=== PATIENT | female | born 1995 | race Caucasian/White ===

== ENCOUNTER 2019-07-08 16:18 | Inpatient (IN) | payer OTHER ==
[~2019-07-08] VITALS: Ht 178 cm; Wt 66.0 kg
--- NOTE | 2019-07-08 | NUR ---
PATIENT SLEEPING. NO SIGNS OF DISTRESS. RESPIRATIONS EASY, NON LABORED. EARLIER MEDICATIONS EFFECTIVE. BED IN LOWEST POSITION CALL LIGHT WITHIN REACH. WILL CONTINUE TO MONITOR.
--- NOTE | 2019-07-08 17:29 | NUR ---
PATIENT MEETS [facility]. CINA=[id number]. PATIENT WANTS MEDICATION-ASSISTED TREATMENT FOR HER AFTERCARE PLAN. [facility] STAFF WILL PROVIDE PATIENT WITH REFERRAL OPTIONS IN HER AREA. REMY MARCOS B.A. PRODUCT TESTER
--- NOTE | 2019-07-08 18:20 | NUR ---
24 year old FEMALE admitted to room # 502-2 for stabilization. Reports an addiction to 8 last used FENTANYL hours prior to admission. Compliant with admission procedure. See assessment forms for additional information about patient status.
[2019-07-08 18:45] VITALS: BP 117/62
--- NOTE | 2019-07-08 18:50 | NUR ---
DR WAHL CALLED AND NOTIFIED THAT PT IS IN THE ROOM AND NO HOME MEDS.
[2019-07-08 19:26] LABS: BILIRUBIN NEGATIVE (NEGATIVE); BLOOD NEGATIVE (NEGATIVE); CLARITY CLEAR (CLEAR); COLOR YELLOW (YELLOW); GLUCOSE NEGATIVE (NEGATIVE); KETONE NEGATIVE (NEGATIVE); LEUKO ESTERASE NEGATIVE (NEGATIVE); NITRITE NEGATIVE (NEGATIVE); PH 5.5 (5.0-9.0); SPECIFIC GRAVITY >= 1.030 (1.005-1.030); UROBILINOGEN 0.2 E.U./dl (0.2-1.0)
[2019-07-08 19:35] LABS: URINE AMPHETAMINES < 1000 (1000ng/ml); URINE BARBITURATES < 200 (200ng/ml); URINE BENZODIAZEPINES < 200 (200ng/ml); URINE CANNABINOIDS (THC) < 50 (50ng/ml); URINE COCAINE < 300 (300ng/ml); URINE METHADONE < 300 (300ng/ml); URINE OPIATES > 300 (300ng/ml)
[2019-07-08 19:37] LABS: URINE PHENCYCLIDINE < 25 (25ng/ml)
[2019-07-08 19:40] LABS: BACTERIA 2+; EPITHELIAL CELLS 15-20
[2019-07-08 19:41] LABS: MUCOUS 1+
[2019-07-08 19:55] LABS: BASO % 0.3 % (0.0-1.0); EOS # 0.1 10*3/uL (0.0-0.4); EOS % 1.1 % (1.0-4.0); HEMATOCRIT 40.5 % (37.0-47.0); LYMPH # 2.1 10*3/uL (1.3-4.4); LYMPH % 34.5 % (27.0-41.0); MEAN CELL VOLUME 88.6 fl (81.0-99.0); MEAN CORPUSCULAR HGB 28.4 pg (27.0-31.0); MEAN CORPUSCULAR HGB CONC 32.1 g/dl (33.0-37.0); MEAN PLATELET VOLUME 10.9 fl (9.6-12.3); MONO # 0.6 10*3/uL (0.1-1.0); MONO % 10.1 % (3.0-9.0); NEUT # 3.3 10*3/uL (2.3-7.9); NEUT % 53.7 % (47.0-73.0); PLATELET COUNT AUTOMATED 243 10*3/uL (130-400); RED BLOOD COUNT 4.57 10*6/uL (4.10-5.10); WHITE BLOOD COUNT 6.1 10*3/uL (4.8-10.8)
[2019-07-08 20:00] VITALS: BP 117/56
[2019-07-08 20:14] LABS: ALBUMIN 4.1 gm/dl (3.1-4.5); BUN 9 mg/dl (7-24); CHLORIDE 108 mmol/L (98-107); CREATININE 0.73 mg/dL (0.55-1.02); POTASSIUM 3.8 mmol/L (3.5-5.1); SGOT/AST 11 IU/L (3-35); SGPT/ALT 15 U/L (12-78); SODIUM 140 mmol/L (136-145); TOTAL PROTEIN 7.4 gm/dL (6.4-8.2)
[2019-07-08 20:15] LABS: ALKALINE PHOSPHATASE 101 U/L (45-117)
[2019-07-08 20:17] LABS: BETA-HCG, QUANT < 1.0 mIU/mL (1-3); ETHYL ALCOHOL < 3.0 mg/dl (<3)
--- NOTE | 2019-07-08 21:27 | NUR ---
PATIENT WANTING NICOTINE INHALER, NOTIFIED DR. BENDER. NICOTINE PATCH AND NICOTINE GUM D/C. NICOTINE INHALER ORDERED. WILL CONTINUE TO MONITOR.
--- NOTE | 2019-07-08 22:29 | NUR ---
PATIENT VERY ANXIOUS, CRYING. C/O OF NAUSEA, ABDOMINAL PAIN AND FEELING ANXIOUS. MEDICATED WITH ZOFRAN, BENTYL AND VISTARIL. NO OTHER COMPLAINTS VOICED AT THIS TIME. WILL CHECK EFFECTIVENESS.
[2019-07-09] VITALS: BP 125/67
[2019-07-09 04:00] VITALS: BP 130/72
--- NOTE | 2019-07-09 05:30 | NUR ---
PATIENT VOMITTED/SPIT UP BOTH SUBUTEX. NOTIFIED DR. BENDER. NO NEW ORDERS RECEIVED. TOLD TO JUST BRIANNA NOT GIVEN AND WILL RETRY WHEN NEXT DOSE IS DUE. NO WITHDRAW SYMPTOMS NOTED. WILL CONTINUE TO MONITOR
[2019-07-09 08:00] VITALS: BP 120/81
--- NOTE | 2019-07-09 13:12 | NUR ---
[facility] STAFF FOUND REFERRAL OPTIONS FOR PATIENT IN HER AREA FOR MEDICATION-ASSISTED TREATMENT USING SUBOXONE AND-OR THE VIVITROL SHOT. [facility] STAFF HAS MADE NUMEROUS ATTEMPTS, HOWEVER PATIENT REPORTS THAT SHE FEELS SICK AND WANTS STAFF TO FOLLOW BACK UP LATER. [facility] STAFF WILL FOLLOW UP LATER. REMY MARCOS B.A. GARDENER
--- NOTE | 2019-07-09 13:32 | NUR ---
PT PUT MINT INTO MOUTH PRIOR TO SL SUBUTEX, SOON SUBUTEX WAS PLACED UNDER THE TONGUE PT GAGGED, VOMITED/SPIT UP SUBUTEX. SUBUTEX WASTED. DR RIVERA NOTIFIED.
[2019-07-09 16:00] VITALS: BP 131/73
--- NOTE | 2019-07-09 17:00 | NUR ---
MEDICATED WITH REQUIP AND VISTARIL ORDERED FOR COMPLAINTS OF ANXIETY AND RESTLESS LEG
--- NOTE | 2019-07-09 17:45 | NUR ---
VOICES THAT PRN MED'S WERE EFFECTIVE
[2019-07-10] VITALS: BP 138/65
[2019-07-10 08:00] VITALS: BP 133/74
--- NOTE | 2019-07-10 09:47 | NUR ---
C/O NAUSEA, ANXIETY AND PAIN/CRAMPS IN LEGS. GIVEN ZOFRAN, VISTARIL, ROBAXIN, AND MOTRIN. WILL CONT TO MONITOR. CALL LIGHT IN REACH.
--- NOTE | 2019-07-10 10:47 | NUR ---
PRN'S EFF AT THIS TIME. WILL CONT TO MONITOR. CALL LIGHT IN REACH.
--- NOTE | 2019-07-10 11:29 | NUR ---
PATIENT IS GOING TO [facility] IN [place], [place] FOR OUTPATIENT TREATMENT. PATIENT IS WANTING MEDICATION-ASSISTED TREATMENT FOR HER AFTERCARE PLAN. PATIENT REPORTS THAT SHE HAS TRANSPORTATION HOME ONCE DISCHARGED. PATIENT AGREES AND UNDERSTANDS HER AFTERCARE PLAN. REMY MARCOS B.A. CRUDE UNIT OPERATOR
[2019-07-10 16:00] VITALS: BP 114/68
[2019-07-10 20:00] VITALS: BP 130/79
--- NOTE | 2019-07-10 21:45 | NUR ---
PATIENT MEDICATED WITH TRAZADONE. WILL CHECK EFFECTIVENESS.
--- NOTE | 2019-07-11 01:37 | NUR ---
PATIENT SLEEPING NO SIGNS OF DISTRESS. RESPIRATIONS EASY, NON LABORED. BED IN LOWEST POSITION CALL LIGHT WITHIN REACH. WILL CONTINUE TO MONITOR.
--- NOTE | 2019-07-11 02:56 | NUR ---
PATIENT MEDICATED WITH ROBAXIN AND VISTARIL FOR COMPLAINTS OF ANXIETY AND MUSCLE CRAMPS. WILL CHECK EFFECTIVENESS.
[2019-07-11 08:00] VITALS: BP 119/66
--- NOTE | 2019-07-11 08:18 | NUR ---
ZOFRAN GIVEN FOR C/O NAUSEA. WILL CONT TO MONITOR. CALL LIGHT IN REACH.
--- NOTE | 2019-07-11 08:30 | NUR ---
PT CALLED OUT AND I WENT IN. PT CURRENTLY HAVING EMESIS. HELPED HER GET CLEANED UP.
[2019-07-11] MEDS ORDERED: ZOFRAN4 MG PO (08:51)
--- NOTE | 2019-07-11 09:18 | NUR ---
PT VOMITING. PER DR LÓPEZ OK TO START IV AND GIVE IV ZOFRAN. IV STARTED AND IV ZOFRAN GIVEN AT THIS TIME. WILL CONT TO MONITOR. CALL LIGHT IN REACH.
--- NOTE | 2019-07-11 10:01 | NUR ---
IV ZOFRAN EFF PER PT. WILL CONT TO MONITOR. CALL LIGHT IN REACH.
--- NOTE | 2019-07-11 11:01 | NUR ---
PT STATES NAUSEA IS STARTING TO COME BACK. PER DR LÓPEZ OK TO GIVE SECOND DOSE OF IV ZOFRAN. GIVEN AT THIS TIME. WILL CONT TO MONITOR. CALL LIGHT IN REACH.
--- NOTE | 2019-07-11 13:44 | NUR ---
PT DISCHARGED AT THIS TIME. IV REMOVED AND PRESSURE DRESSING APPLIED. VERBALIZED UNDERSTANDING OF DISCHARGE INSTRUCTIONS.
== END 2019-07-11 13:44 | disposition home or self-care (01) | DRG 773 ==
LOC: 5E 16:18
PROVIDERS: Internal Medicine; ADMIT Internal Medicine
DX: F11.23 Opioid dependence with withdrawal (principal); E87.8 Other disorders of electrolyte and fluid balance, not elsewhere classified; R73.9 Hyperglycemia, unspecified; F17.210 Nicotine dependence, cigarettes, uncomplicated; Z71.6 Tobacco abuse counseling; Z82.49 Family history of ischemic heart disease and other diseases of the circulatory system; Z80.3 Family history of malignant neoplasm of breast; Z80.41 Family history of malignant neoplasm of ovary